=== PATIENT | female | born 1955 | race Caucasian/White ===

== ENCOUNTER 2017-01-08 09:15 | Day surgery (SDC) | payer OTHER ==
[~2017-01-08 09:15] MED LIST: CEFAZOLIN 2 GM/D5W RTU 2 GM/50 ML RTUPB IV PRN
[2017-01-08] MEDS ORDERED: OXYMETAZOLINE HCL 0.05% NASAL SPRAY 15 ML BOTTLE ONE (10:14)
[2017-01-08] MEDS ORDERED: LIDOCAINE 1%/EPINEPHRINE INJ 20 ML VIAL ONE (10:14)
[2017-01-08] MEDS ORDERED: BUPIVACAINE HCL 0.5%-EPI 1:200000 INJ/PF 30 ML VIAL ONE (10:14)
[2017-01-08] MEDS ORDERED: WATER FOR INJECTION,STERILE 10 ML SDV ONE (13:11)
--- NOTE | 2017-01-14 23:18 | SURGICARE OPERATIVE REPORT E ---
[facility] Operative Report NAME: JOE HANSON AGE: 61Y DATE OF SURGERY: 01/08/2017 ROOM: PREOPERATIVE DIAGNOSIS: 1. CHRONIC SINUS DISEASE. 2. RECURRENT ACUTE SINUSITIS. 3. NASAL SEPTAL DEVIATION ACQUIRED. 4. BILATERAL INFERIOR TURBINATE HYPERTROPHY. POSTOPERATIVE DIAGNOSIS: 1. CHRONIC SINUS DISEASE. 2. RECURRENT ACUTE SINUSITIS. 3. NASAL SEPTAL DEVIATION ACQUIRED. 4. BILATERAL INFERIOR TURBINATE HYPERTROPHY. OPERATION PERFORMED: 1. Functional endoscopic sinus surgery with bilateral transnasal surgical endoscopy. 2. Bilateral maxillary antrostomies. 3. Bilateral frontal sinus balloon sinuplasty. 4. Septoplasty. 5. Bilateral inferior turbinate reduction using a submucous resection technique. SURGEON: MEENA YOST D.O. ANESTHESIA: General endotracheal anesthesia. ANESTHESIA STAFF: Eligio RENDON. ESTIMATED BLOOD LOSS: 30 mL. FLUIDS: 1500 mL. COMPLICATIONS: None. DRAINS: None. SPONGE COUNT: Verified. NEEDLE COUNT: Verified. MATERIALS FORWARDED SPECIMEN: None. FINDINGS: 1. Right nasal septal deviation involving bone and cartilage. 2. There were no sinonasal polyp or discharge noted. 3. Bilateral inferior turbinate hypertrophy. INDICATIONS: This is a 61-year-old white female who was seen and evaluated in the otolaryngology clinic at [facility]. The patient has been referred for and she complained of a history of chronic recurrent sinusitis over the years. The patient reports episodes each year requiring antibiotic treatment over the years. She also complains of chronic sinus symptoms as well affecting the maxillary and frontal sinus distributions. The patient has also complained of chronic nasal dyspnea over the years. The patient underwent nasal endoscopy in the clinic as well as CT sinus imaging. After extensive discussion with the patient, recommendation and plan was made to proceed with functional endoscopic sinus surgery, septoplasty, and turbinate reduction surgery. The procedures and all of their risks and complications were all discussed in detail with the patient. She voiced an understanding of the described surgical plan, agreed to proceed, and consent was obtained. PROCEDURE: The patient was taken to the main operating room and placed on the operating room table in the supine position. Appropriate monitors were placed. Using mask and IV access, general anesthesia was induced. The patient was then transorally intubated without difficulty. The patient was positioned and prepped for nasal surgery. She underwent a nasal examination with injection of local anesthetic with epinephrine to establish a nasal block. Two Afrin-soaked neuro patties were placed per nasal passage. The patient was then prepped and draped in the usual fashion for sinus and nasal surgery. At this point, the neuro patties were withdrawn and the patient underwent a hemitransfixion incision. Mucoperichondrium periosteal flaps were elevated without difficulty. The bony cartilaginous junction was identified and divided. The most deviated portions of septal cartilage and bone were removed. There was greater than 2 x 2 cm cartilaginous L-Strut that was preserved. At this point, the anterior aspect of each inferior turbinate was entered with a pair of Jimmy scissors. The [place] was used to elevate tissues in in a submucosal plane. The turbinate microdebrider system at a setting of 1500 RPM was used to debulk tissue on each side. This was followed by use of a Marlborough elevator to outfracture each inferior turbinate. At this point, the sinus surgery portion of the case was completed in the following manner. Zero degree endoscopy was utilized throughout this portion of the case. Sinus instrumentation was used to debulk the anterior aspect of each middle turbinate. Next, the maxillary antrostomies were performed utilizing sinus surgical instrumentation and the microdebrider system at a setting of 1500 RPM. Once complete, the frontal sinus balloon sinuplasty system was introduced utilizing the AL guidewire. The frontal sinus balloon was inflated at multiple positions on each side and inflated each time to a setting of 10 atmospheres of pressure. Once complete, the balloon sinuplasty system was withdrawn. At this point, the nose was thoroughly irrigated and suctioned. There was adequate hemostasis noted. The mucosal flaps were reapproximated and the hemitransfixion incision was closed with chromic suture. Chromic suture was also utilized to place a septal mattress whip stitch. Once complete, Stammberger Sinu-Foam was placed on each side lateral to the middle turbinate. One [place] Paz silicone nasal splint was placed per nasal passage and these were secured at the caudal aspect with 4-0 Prolene suture. The patient's nose was then cleaned and dried. The patient was returned to the anesthesia staff and was allowed to emerge from general anesthetic. The patient was extubated in the main operating room and was then transported to the post-anesthesia recovery unit in stable condition. There were no complications. DICTATING PHYSICIAN: MEENA YOST D.O. [id number] PHY#: [id number] ID: [id number] JOB#: [id number] ACCT: [id number] cc:MEENA YOST D.O. >
== END 2017-01-08 15:43 | disposition home or self-care (01) ==
LOC: SC 09:15
PROVIDERS: ATTEND Otolaryngology
PROC: 099Q4ZZ Drainage of Right Maxillary Sinus, Percutaneous Endoscopic Approach (ICD-10-PCS; 2017-01-08)
PROC: 09TL8ZZ Resection of Nasal Turbinate, Via Natural or Artificial Opening Endoscopic (ICD-10-PCS; 2017-01-08)
PROC: 09BM4ZZ Excision of Nasal Septum, Percutaneous Endoscopic Approach (ICD-10-PCS; 2017-01-08)
PROC: 09QT4ZZ Repair Left Frontal Sinus, Percutaneous Endoscopic Approach (ICD-10-PCS; 2017-01-08)
PROC: 09QS4ZZ Repair Right Frontal Sinus, Percutaneous Endoscopic Approach (ICD-10-PCS; 2017-01-08)
PROC: 099R4ZZ Drainage of Left Maxillary Sinus, Percutaneous Endoscopic Approach (ICD-10-PCS; principal; 2017-01-08 10:45)
DX: J34.2 Deviated nasal septum (principal); J32.9 Chronic sinusitis, unspecified; J34.3 Hypertrophy of nasal turbinates; K21.9 Gastro-esophageal reflux disease without esophagitis; J30.2 Other seasonal allergic rhinitis; E07.9 Disorder of thyroid, unspecified; Z79.899 Other long term (current) drug therapy; Z88.6 Allergy status to analgesic agent; Z88.2 Allergy status to sulfonamides; Z79.51 Long term (current) use of inhaled steroids
CPT/HCPCS: 31256; 30140; 30520; 31296; C1726 ×2; J3490 ×3; J0690; 160

== ENCOUNTER → 2018-09-16 | Outpatient (CLI) | payer OTHER ==
--- NOTE | 2018-09-16 14:35 | WOMENS IMAGING REPORT ---
EXAM DESCRIPTION: BILAT SCREENING MAMMO W/CAD COMPLETED DATE/TIME: 09/16/2018 9:03 am REASON FOR STUDY: BILATERAL SCREENING MAMMO/Z12.31 Z12.31 ENCNTR SCREEN MAMMOGRAM FOR MALIGNANT CRISTI PLASM OF ASH COMPARISON: [id number] TECHNIQUE: Standard craniocaudal and mediolateral oblique views of each breast recorded using Watticsa l acquisition. LIMITATIONS: None. FINDINGS: No masses, calcifications or architectural distortion. No areas of suspicion. Read with the assistance of CAD. .[facility] - R2 Cenova Version 1.3 .[facility] Imaging - R2 Cenova Version 1.3 .[facility] - R2 Cenova Version 2.4 .[facility] - R2 Cenova Version 2.4 .[facility] - R2 Vibrator Operator Version 9.2 IMPRESSION: NORMAL MAMMOGRAM. BIRADS 1. BREAST DENSITY: a. The breasts are almost entirely fatty. BIRAD: 1 NEGATIVE RECOMMENDATION: ROUTINE SCREENING COMMENT: The patient has been notified of the results by letter per SA requirements. Additional no tification policies are in place for contacting patient with suspicious or incomplete findings. Quality ID #225: The [employer] recommends an annual screening mammogram for women aged 40 years or over. This facility utilizes a reminder system to ensure that all patients receive reminder letters, and/or direct phone calls for appointments. This includes reminders for routine scr eening mammograms, diagnostic mammograms, or other Breast Imaging Interventions when appropriate. Th is patient will be placed in the appropriate reminder system. The [employer] (ACR) has developed recommendations for screening MRI of the breast s in certain patient populations, to be used in conjunction with mammography. Breast MRI surveillanc e may be appropriate for women with more than 20% lifetime risk of developing breast cancer as deter mined by genetic testing, significant family history of the disease, or history of mantle radiation f or Hodgkins Disease. ACR Practice Guidelines 2008. TECHNICAL DOCUMENTATION: FINDING NUMBER: (1) ASSESSMENT: (1) JOB ID: [id number] [employer]- All Rights Reserved Reading location - IP/workstation name: [email or web address]
== END ==
LOC: WI 08:25
PROVIDERS: ATTEND Physician Assistant
DX: Z12.31 Encounter for screening mammogram for malignant neoplasm of breast (principal)
CPT/HCPCS: 77067

== ENCOUNTER → 2020-05-18 | Outpatient (CLI) | payer OTHER ==
--- NOTE | 2020-05-18 13:38 | WOMENS IMAGING REPORT ---
EXAM DESCRIPTION: BILAT SCREENING MAMMO W/CAD IMAGES COMPLETED DATE/TIME: 05/18/2020 10:03 am REASON FOR STUDY: Z12.31 ENCOUNTER FOR SCREENING MAMMOGRAM FOR MALIGNANT NEOPLASM OF BREAST Z12.31 ENCNTR SCREEN MAMMOGRAM FOR MALIGNANT NEOPLASM OF ASH COMPARISON: 09/16/2018, 09/04/2017, 07/02/2016 EXAM PARAMETERS: Standard craniocaudal and mediolateral oblique views of each breast recorded using digital acquisition. Read with the assistance of CAD. .[facility] - R2 Pet Supplies Salesperson Version 9.2 LIMITATIONS: None. FINDINGS: No suspicious masses, suspicious calcifications or architectural distortion. No areas of c oncern. IMPRESSION: NEGATIVE MAMMOGRAM. BIRADS 1 BREAST DENSITY: a. The breasts are almost entirely fatty. BIRAD: ASSESSMENT: 1 NEGATIVE RECOMMENDATION: ROUTINE SCREENING COMMENT: The patient has been notified of the results by letter per MQSA requirements. Additional no tification policies are in place for contacting patient with suspicious or incomplete findings. Quality ID #225: The [employer] recommends an annual screening mammogram for women aged 40 years or over. This facility utilizes a reminder system to ensure that all patients receive reminder letters, and/or direct phone calls for appointments. This includes reminders for routine scr eening mammograms, diagnostic mammograms, or other Breast Imaging Interventions when appropriate. Th is patient will be placed in the appropriate reminder system. TECHNICAL DOCUMENTATION: FINDING NUMBER: (1) ASSESSMENT: (1) JOB ID: [id number] 2010 [employer]- All Rights Reserved Reading location - IP/workstation name: [facility]
== END ==
LOC: WI 09:13
PROVIDERS: ATTEND Advanced Practice Midwife
DX: Z12.31 Encounter for screening mammogram for malignant neoplasm of breast (principal)
CPT/HCPCS: 77067